=== PATIENT | female | born 1995 | race Two or more races ===

== ENCOUNTER 2025-04-27 09:44 | Emergency (ER) | payer MEDICAID ==
[~2025-04-27] VITALS: Ht 157.5 cm; Wt 72.4 kg
[2025-04-27 10:03] VITALS: TEMP 97.8
[2025-04-27 10:43] LABS: LEUKOCYTE ESTERASE ,URINE NEGATIVE (Neg); NITRITES, URINE POSITIVE (Neg); OCCULT BLOOD,URINE MODERATE (Neg); UA COLLECTION TYPE CLN CATCH MIDSTREAM; URINE HCG POSITIVE (NEG)
[2025-04-27 10:50] LABS: MUCUS STRANDS NONE SEEN /LPF (Neg); SQUAMOUS EPITHELIAL CELL,UR MANY /LPF (FEW)
[2025-04-27 12:40] LABS: MEAN PLATELET VOLUME 7.9 FL (7.4-10.4); RED CELL DISTRIBUTION WIDTH 13.2 % (11.5-14.5)
--- NOTE | 2025-04-27 12:58 | RADIOLOGY REPORT ---
CLINICAL HISTORY: , unk gestational age COMPARISON:None TECHNIQUE: Transvaginal and transabdominal grayscale sonographic imaging of the uterus and ovaries wa s performed, assisted by color Doppler technique. Duplex Doppler ultrasound of both ovaries was also performed. Sonographic evaluation of early intrauterine was performed. FINDINGS: The uterus measures 9.2 x 4.7 x 5.8 cm. There is an intrauterine gestational sac. No yolk s ac or pole identified on transabdominal examination. Gestational sac diameter measures 1.63 cm, corresponding to an estimated gestational age of 6 weeks 0 days. Neither ovary is visualized. IMPRESSION: 1. Intrauterine gestational sac with no yolk sac or pole identified at this time on transabdomi nal ultrasound. 2. Gestational sac diameter corresponds to an estimated gestational age of 6 weeks 0 days. Correlate with clinical findings, serial beta HCG levels, and follow-up ultrasound recommended.
[2025-04-27 13:00] LABS: CREATININE 0.55 MG/DL (0.40-0.90); TOTAL CARBON DIOXIDE 27.1 MMOL/L (24-32); eCRCL 118 ML/MIN; eGFR > 90 ML/MIN
--- NOTE | 2025-04-27 13:27 | Physician Documentation ---
History of Present Illness ~ Chief Complaint: Complications Stated Complaint: COMPLICATIONS Time Seen by MD: 10:20 OK to notify your PCP?: Yes Primary Medical Doctor: NONE Source: patient, family Mode of Arrival: POV, Ambulatory Exam Limitations: no limitations HPI 30-year-old female presents for bleeding with urination which is dark in color that started yesterday. She is worried about a possible miscarriage. She denies having any vaginal bleeding or cramping. She denies any other urinary symptoms such as burning with urination. She reports that she took a home test that was positive. She is not sure when her last menstrual period is as she was and has not received a menstrual cycle since the of her child 1 year ago. She has since stopped and has not received her menstrual cycle yet. She has 3 living children and has had 3 pregnancies over the past 6 years. Medication Reconciliation Allergies: Coded Allergies: No Known Allergies (Unverified , 04/27/25) Review of Systems All Other Systems at this time: Reviewed and Negative Physical Exam Physical Exam Vital Signs: RN Vital Signs have been reviewed: Yes, Temperature: 97.8, Source: Oral, Heart Rate: 90, Respiratory Rate: 15, BP: 119/82, Pulse Oximetry: 100, Weight: 72.400 Oxygen Flow Rate: 0 Pulse Oximetry Reflects: adequate oxygenation Physical Exam General: Alert, no apparent distress. HEENT: PERRL, EOMI, no injection, moist mucous membranes. Neck: Full range of motion. Respiratory: Lungs clear, no respiratory distress. Chest: No accessory muscle use. Cardiovascular: Regular rate and rhythm, no murmurs. Gastrointestinal: Soft, nontender, nondistended. Bowels sounds present. Extremities: Normal range of motion, no deformity. Back: No CVA tenderness. Neurologic: Oriented x4. Psychiatric: Normal mood and affect. Skin: Normal color, warm and dry. No edema, no ecchymosis. Progress Results/Orders Results/Orders Orders - ANTONELLA ROBERTS US OB (04/27/25 ) Completed Orders - ANTONELLA ROBERTS Abo/Rh (Type Only) (04/27/25 11:17) BMP (04/27/25 11:17) Hcg Serum Qt (04/27/25 11:17) US OB (04/27/25 ) Cbc/Diff (04/27/25 11:59) Fosfomycin Tromethamine Packet (Monurol (04/27/25 13:25) Medications Received in ER Medications (Trade) Dose Ordered Sig/Kamla Route PRN Reason Start Time Stop Time Status Last Admin Dose Admin (Monurol 3gm packet) 3 gm ONCE ONCE PO 04/27/25 13:25 04/27/25 13:28 DC 04/27/25 13:36 3 GM Vital Signs 04/27/25 04/27/25 04/27/25 04/27/25 10:03 10:18 12:01 13:50 Temp 97.8 Pulse 99 90 86 Resp 16 16 15 14 B/P (MAP) 123/93 119/82 (94) 131/76 Pulse Ox 99 100 96 O2 Flow Rate 0 0 Laboratory Tests Test 04/27/25 10:25 04/27/25 11:36 04/27/25 12:23 Urine Specimen Description Cln catch midstream Urine Color Yellow Urine Clarity Slightly cloudy Urine pH 7.5 Urine Specific [place] 1.015 Urine Protein Negative Urine Glucose (UA) Negative Urine Ketones Negative Urine Occult Blood Moderate H Urine Nitrite Positive H Urine Bilirubin Negative Urine Urobilinogen 0.2 Urine Leukocyte Esterase Negative Urine RBC 0-2 Urine WBC 0-4 Urine Squamous Epithelial Cells Many Urine Bacteria 4+ Urine Mucus None seen Urine Culture Indicated Rejected for culture Volume Urine Centrifuged 10 ml Urine HCG, Qualitative Positive Urine Comment CBC Comment Sodium Level 139 Potassium Level 4.2 Chloride Level 103 Carbon Dioxide Level 27.1 Anion Gap 9 Blood Urea Nitrogen 9 Creatinine 0.55 Estimated GFR/1.73 m2 > 90 BUN/Creatinine Ratio 16.4 Glucose Level 90 Calcium Level 9.3 Albumin 3.8 HCG Beta Subunit 48329 Chemistry Comments White Blood Count 11.6 H Red Blood Count 4.54 Hemoglobin 13.7 Hematocrit 39.5 Mean Corpuscular Volume 86.9 Mean Corpuscular Hemoglobin 30.2 Mean Corpuscular Hemoglobin Concent 34.7 Red Cell Distribution Width 13.2 Platelet Count 385 Mean Platelet Volume 7.9 Neutrophils (%) (Auto) 75.2 H Lymphocytes (%) (Auto) 17.8 L Monocytes (%) (Auto) 6.0 Eosinophils (%) (Auto) 0.7 Basophils (%) (Auto) 0.3 Neutrophils # (Auto) 8.7 H Lymphocytes # (Auto) 2.1 Monocytes # (Auto) 0.7 Eosinophils # (Auto) 0.1 Basophils # (Auto) 0.0 EKG/XRAY/CT/US/VASC/MRI Ultrasound : Impression OB transabdominal ultrasound as interpreted by me: There is a gestational sac present, no yolk or pole seen at this time. Measuring approximately 6 weeks gestation. Cervix appears closed. Medical Decision Making Additional info obtained from: old records, family Findings 30-year-old female, , presenting with dark blood in her urine since yesterday. She denies having any prior miscarriages or complications. She denies any vaginal bleeding or abnormal vaginal discharge. She denies passing any clots with her urine. She recently found out that she is a via a home test which are urine HCG was able to confirm. Her physical exam is unremarkable and she has no CVA tenderness. Her beta quant hCG was elevated in the 5-8 week range. Her OB ultrasound in the department shows a gestational sac measuring approximately 6 weeks gestation. Her urinalysis is positive for blood with few white blood cells seen and no leukocyte esterase. Her blood type is A positive so there was no need for a RhoGAM injection. Her BMP was unremarkable and her CBC showed slight elevation WBCs at 11.6 but no obvious left shift. Her nitrites were also positive which is highly sensitive for a urinary tract infection. As she is and in her 1st trimester, our antibiotic treatment options are limited and she does not have any current follow up at this time as she is new to the area. I gave her a 1 time dose of fosfomycin to treat her urinary tract infection while in the department. Discussed these findings with the patient as well as that she needs to follow up with her OB for further care. We gave her some resources to obtain a new OB in this area. Differential Dx:Considerations: Include: -complete, - threatened, Ectopic , Ectopic preg.-ruptured, Placenta previa, Pyelonephritis: Acute, Vaginal bleeding Departure Disposition: 01 HOME / SELF CARE / HOMELESS Impression: Primary Impression: UTI (urinary tract infection) in in first trimester Condition: Stable Discharge Instructions: Urinary Tract Infection, Adult, [id number] Additional Instructions: Please follow up with your OB. On your ultrasound, the gestational sac is measuring approximately 6 weeks. We gave you a 1 time dose of fosfomycin to treat your urinary tract infection in the department. Referrals: NO PRIMARY CARE PROVIDER (PCP) Education Educated: Patient, Family Educated regarding: diagnosis, treatment, prognosis, need for follow up Additional Comment Medical Screen Exam This patient recieved a medical screening examination. After reviewing the individual's medical complaints with presenting symptoms and performing an appropriate physical examination, it was determined that no immediate life- threatening emergency medical condition is present. This individual is also not a women having contractions. Signature Scribe Signature: . Attestation: Scribed for Antonella Robertsp by Antonella Azul NP . 04/27/25 15:30 Parts of this note were created using [employer] voice recognition software program. While efforts were made to correct any mistakes made by this voice recognition software program, nonsensical phrases may remain in this note. In addition, there may be errors and syntax, grammar, content and spelling. ANTONELLA ROBERTS [employer] Apr 27, 2025 13:27
[2025-04-27] MEDS: FOSFOMYCIN TROMETHAMINE 3 GM PACKET PO ONE (13:36)
[2025-04-27 13:50] VITALS: BP 131/76; PULSE 86; RESP 14; O2SAT 96
== END 2025-04-27 13:52 | disposition home or self-care (01) ==
LOC: ER 09:46
DX: O23.41 Unspecified infection of urinary tract in pregnancy, first trimester (principal); N39.0 Urinary tract infection, site not specified; Z3A.01 Less than 8 weeks gestation of pregnancy
CPT/HCPCS: 36415; 76815; 80048; 81001; 81025; 84702; 85025; 86900; 86901; 99284